=== PATIENT | male | born 1980 ===

== ENCOUNTER 2019-06-08 19:55 | Observation (INO) | payer SELFPAY ==
[2019-06-08 22:13] LABS: #Eosinphils 0.2 thou/uL (0.0-0.7); #Lymphocytes 1.3 thou/uL (1.20-3.40); #Monocytes 0.5 thou/uL (0.11-0.59); #Neutrophils 8.6 thou/uL (1.40-6.50); %Basophils 0.2 % (0.0-1.0); %Eosinophils 1.5 % (0.0-10.0); %Lymphocytes 12.1 % (21.0-51.0); %Monocytes 4.5 % (0.0-10.0); %Neutrophils 81.7 % (42.0-75.0); Hemoglobin 15.3 g/dL (14.0-18.0); Mean Corpuscular HGB CONC 35.5 g/dL (32.0-36.0); Mean Corpuscular Hemoglobin 31.1 pg (27.0-31.0); Mean Corpuscular Volume 87.6 fL (78.0-98.0); Mean Platelet Volume 7.4 fL (7.4-10.4); Platelet Count 212 thou/uL (130-400); RBC Distribution Width 11.6 % (11.5-14.5); White Blood Cell (WBC) Count 10.5 thou/uL (4.8-10.8)
[2019-06-08 22:33] LABS: ALT (SGPT) 87 U/L (8-55); AST (SGOT) 106 U/L (5-34); Albumin 4.3 g/dL (3.5-5.0); Alkaline Phosphatase 74 U/L (40-110); Anion Gap 13 mmol/L (10-20); BUN (Urea Nitrogen) 23 mg/dL (8.9-20.6); Bilirubin, Total 0.6 mg/dL (0.2-1.2); Calc. Creatinine Clearance 0 mL/min (70-130); Carbon Dioxide 24 mmol/L (22-29); Chloride 103 mmol/L (98-107); Estimated GFR-MDRD 80; Globulin 2.6 g/dL (2.4-3.5); Glucose 230 mg/dL (70-105); Potassium 3.7 mmol/L (3.5-5.1); Protein, Total 6.9 g/dL (6.0-8.3); Sodium 136 mmol/L (136-145)
--- NOTE | 2019-06-08 23:17 | ULT ---
Scrotal sonogram with duplex evaluation HISTORY: Testicular pain. FINDINGS: The right testicle measures up to 5.0 cm length and the left 4.8 cm. Each has a normal sono graphic appearance with good color and spectral Doppler flow. Along the lateral margin of the right side of the scrotum, a lobular heterogeneous complex lesion wit h some internal fluid is centered outside of the testicle. IMPRESSION: Normal sonographic appearance of the testicles. No evidence of mass or torsion. Complex fluid collection along the right side of the scrotum. Possibly a hematoma? Correlate with rec ent surgical history.
--- NOTE | 2019-06-09 01:34 | PDOC.FPRHP ---
- History of Present Illness Chief Complaint: R scrotal bleeding and swelling History of Present Illness: Patient is a 38M with no PMHx who presented with post-op complications after a vasectomy 06/08. Patient had a vasectomy at [facility] on 06/08. Per patient, everything went fine after the procedure and he went home. He had been laying down at home, and when he got up to use the restroom he noticed that his pants and boxers were covered in blood and his scrotum was swollen. Patient reports of only a little pain. He states he was able to urinate after the procedure, but has not urinated since he noticed the bleeding, though he has not had much to drink and does not feel the need to urinate. PCP: Fisionrosamaria - Allergies/Adverse Reactions Allergies Allergy/AdvReac Type Severity Reaction Status Date / Time No Known Allergies Allergy Verified 06/09/19 03:14 - History PMHx: None PSHx: Appendectomy FHx: non-contributory Social: drinks 6-pack of beer per week, non-smoker, no drug use - Review of Systems General: denies: fever/chills, weight/appetite/sleep changes Eyes: denies: eye pain, vision changes ENT: denies: nasal congestion, rhinorrhea Respiratory: denies: cough, shortness of breath Cardiovascular: denies: chest pain, edema Gastrointestinal: denies: nausea, vomiting, diarrhea Genitourinary: reports: other (swollen scrotum, bleeding from scrotum) Skin: denies: rashes, lesions Musculoskeletal: denies: tenderness, stiffness Neurological: denies: syncope, seizure Psychological: denies: anxiety, depression - Vital signs BP: [110/70] HR: [72] RR: [16] Tmax: [99.2F] Pox: [95]% on [RA] Wt: [80.467kg ] - Physical Exam Constitutional: NAD, awake, alert and oriented HEENT: EOMI, MMM Neck: supple, FROM Chest: no-tender to palpation, no lesions Heart: RRR, normal S1/S2 Lungs: CTAB, no respiratory distress Abdomen: soft, non-tender Musculoskeletal: normal structure, ROM grossly normal Neurological: no focal deficit, normal sensation Skin: good turgor, no jaundice Heme/Lymphatic: no purpura, other (scrotum is no long bleeding on exam) Psychiatric: normal mood and affect, good judgment and insight Additional comment: scrotum swollen, mildly tender to palpation FMR H&P: Results - Labs Result Diagrams: 06/09/19 05:58 06/09/19 05:58 Lab results: WBC 10.5 thou/uL (4.8-10.8) 06/08/19 22:00 Hgb 15.3 g/dL (14.0-18.0) 06/08/19 22:00 Hct 42.9 % (42.0-52.0) 06/08/19 22:00 MCV 87.6 fL (78.0-98.0) 06/08/19 22:00 Plt Count 212 thou/uL (130-400) 06/08/19 22:00 Neutrophils % 81.7 % (42.0-75.0) H 06/08/19 22:00 Sodium 136 mmol/L (136-145) 06/08/19 22:00 Potassium 3.7 mmol/L (3.5-5.1) 06/08/19 22:00 Chloride 103 mmol/L (98-107) 06/08/19 22:00 Carbon Dioxide 24 mmol/L (22-29) 06/08/19 22:00 BUN 23 mg/dL (8.9-20.6) H 06/08/19 22:00 Creatinine 1.04 mg/dL (0.7-1.3) 06/08/19 22:00 Glucose 230 mg/dL (70-105) H 06/08/19 22:00 Calcium 9.0 mg/dL (7.8-10.44) 06/08/19 22:00 Total Bilirubin 0.6 mg/dL (0.2-1.2) 06/08/19 22:00 AST 106 U/L (5-34) H 06/08/19 22:00 ALT 87 U/L (8-55) H 06/08/19 22:00 Alkaline Phosphatase 74 U/L (40-110) 06/08/19 22:00 Serum Total Protein 6.9 g/dL (6.0-8.3) 06/08/19 22:00 Albumin 4.3 g/dL (3.5-5.0) 06/08/19 22:00 - Radiology Interpretation Other Status: report reviewed by me (Scrotal U/S: normal testicles, no evidence of mass/torsion; complex fluid collection along right side of scrotum, possible hematoma) FMR H&P: A/P - Problem List (1) Elevated transaminase level Current Visit: Yes Status: Acute Code(s): R74.0 - NONSPEC ELEV OF LEVELS OF TRANSAMNS & LACTIC ACID DEHYDRGNSE (2) Elevated glucose Current Visit: Yes Status: Acute Code(s): R73.09 - OTHER ABNORMAL GLUCOSE (3) Scrotal hematoma Current Visit: Yes Status: Acute Code(s): S30.22XA - CONTUSION OF SCROTUM AND TESTES, INITIAL ENCOUNTER (4) Scrotal bleeding Current Visit: Yes Status: Acute Code(s): N50.1 - VASCULAR DISORDERS OF MALE GENITAL ORGANS (5) History of vasectomy Current Visit: Yes Status: Acute Code(s): Z98.52 - VASECTOMY STATUS - Plan Patient is a 38M with no PMHx who presents with post-op complications after vasectomy 06/08 #Hx of vasectomy #Scrotal swelling #Scrotal bleeding -vasectomy 06/08, no complications during the procedure, with bleeding and swelling that occurred after the patient got home -u/s suggestive of scrotal hematoma, no evidence for testicular torsion/swelling -patient reports of only a small amount of pain -H/H stable at 15.3/42.9, will repeat in am to monitor -will get INR/PT in morning #Elevated transaminases -AST 106, ALT 87 -patient reports he drinks 6 pack of beer/week -will get coags in am #Elevated glucose -glucose 230 -no hx of diabetes -BMP and A1C in am DVT ppx: SCDs Dispo: obs to monitor for stability of scrotal swelling, monitor stability of H/ H. Will check coags in am and likely d/c in am if patient is stable Code: Full FMR H&P: Upper Level - Plan Date/Time: 06/09/19 0133 IBola MD, have evaluated this patient and agree with findings/ plan as outlined by wildlife biology internship resident. Pertinent changes/additions are listed here. 38 yo male [place] [facility] [place]. Reports significant bleeding after urinating today. Please see wildlife biology internship note above for further information. 1. Post-op complication bleeding - H&H stable and discontinued bleeding at this time - Scrotal US showed stable hematoma - Will recheck H&H in AM - Will check PT/INR in AM 2. Elevated AST/ALT - Likely secondary to alcohol intake - Recommend outpatient follow up 3. Hyperglycemia - Consider DM diagnosis - Recheck BMP in AM - Recommend outpatient follow up PCP: [facility] CODE STATUS: FULL CODE Disposition: Stable, will admit for observation and likely discharge in AM. Addendum - Attending - Attending Attestation Date/Time: 06/09/19 5079 I personally evaluated the patient and discussed the management with Dr. Peña I agree with the History, Examination, Assessment and Plan documented above with any addition or exceptions noted below. Patient s/p vasectomy with right sided scrotal swelling and hematoma appr 3.5 cm with scrotal bruising . No fever no chills voiding well recommend elevation scrotal support reduced activity ice and observation could be discharged later today if no further bleeding discussed with patient at length.
[2019-06-09] MEDS ORDERED: Ondansetron ODT 4 MG TAB SL PRN (02:25)
[2019-06-09] MEDS ORDERED: Ondansetron PF 4 MG/2 ML Vial IVP PRN (02:25)
[2019-06-09] MEDS ORDERED: Sodium Chloride 0.9% 1,000 ML IV SCH (02:25)
[2019-06-09] MEDS ORDERED: Ondansetron ODT 4 MG TAB PO PRN (02:33)
[2019-06-09] MEDS ORDERED: Acetaminophen 325 MG TAB PO PRN (02:33)
[2019-06-09 02:40] VITALS: BMI 26.9
[2019-06-09 06:20] LABS: Hemoglobin 14.4 g/dL (14.0-18.0); Mean Corpuscular HGB CONC 35.2 g/dL (32.0-36.0); Mean Corpuscular Volume 88.2 fL (78.0-98.0); Mean Platelet Volume 7.4 fL (7.4-10.4); Platelet Count 192 thou/uL (130-400); RBC Distribution Width 11.7 % (11.5-14.5); Red Blood Cell (RBC) Count 4.65 mill/uL (4.70-6.10); White Blood Cell (WBC) Count 5.7 thou/uL (4.8-10.8)
[2019-06-09 06:34] LABS: Anion Gap 11 mmol/L (10-20); BUN (Urea Nitrogen) 22 mg/dL (8.9-20.6); Calc. Creatinine Clearance 158 mL/min (70-130); Calcium 8.7 mg/dL (7.8-10.44); Carbon Dioxide 24 mmol/L (22-29); Chloride 105 mmol/L (98-107); Estimated GFR-MDRD Greater than 90; Glucose 198 mg/dL (70-105); Potassium 3.8 mmol/L (3.5-5.1); Sodium 136 mmol/L (136-145)
[2019-06-09 06:45] LABS: PTT 29.9 SEC (22.9-36.1); Prothrombin Time 13.4 SEC (12.0-14.7)
[2019-06-09 11:11] LABS: Hemoglobin A1c 9.3 % (4.0-6.0)
[2019-06-09 12:10] VITALS: BP 117/68; TEMP 98.6
--- NOTE | 2019-06-11 10:58 | DIS ---
DATE OF ADMISSION: 06/09/2019 DATE OF DISCHARGE: 06/09/2019 RESIDENT: Kelli High MD. ADMITTING ATTENDING: Luis Miguel Wright MD. DISCHARGE ATTENDING: Luis Miguel Wright MD. CONSULTS: None. PROCEDURES: Testicular ultrasound, normal appearance of testicles. No evidence of mass or torsion. Complex fluid collection on the right side of scrotum, possibly a hematoma. PRIMARY DIAGNOSES: 1. Scrotal hematoma in the setting of recent vasectomy. 2. Elevated transaminitis. 3. Hyperglycemia. DISCHARGE MEDICATIONS: Tylenol and ibuprofen as needed. HISTORY OF PRESENT ILLNESS/HOSPITAL COURSE: Mr. Fontenot is a 38-year-old male who recently had a vasectomy procedure in clinic. He reported no symptoms afterwards, but overnight developed swelling and a little bit of an inguinal pain that caused him to present to the emergency department. Here testicular ultrasound was performed showing scrotal hematoma. The patient was not having any symptoms of difficulty with urination or severe pain. H and H were stable throughout hospital course. INR and her PT/INR were normal as well. On routine labs drawn, initial labs it was noted that he had elevated AST 106 and ALT 87. The patient reports he drinks a six pack of beer per week. This can be followed up outpatient. He is also noted to have an elevated glucose of initially 230 and on the morning of 06/09 it was 198. His A1c is 9.3. This resulted after patient had been discharged. Please discuss diagnosis of diabetes with patient. The patient was educated on ways to reduce swelling such as cold compresses and elevation. He will need to follow up Tuesday with Dr. Zhou or another physician who has availability. DISPOSITION: Stable. DISCHARGE INSTRUCTIONS: Location: Home. Diet: Carb consistent. Activity: As tolerated. Followup: Josemanuel Kim Physician in 2 days on Tuesday, June 12. Job ID: [id number] [facility]
== END 2019-06-09 15:05 | disposition home or self-care (01) ==
LOC: ERS 19:55 → SJJU 06-09 02:31
PROVIDERS: ADMIT Internal Medicine; ATTEND Internal Medicine
DX: N99.840 Postprocedural hematoma of a genitourinary system organ or structure following a genitourinary system procedure (principal); N50.1 Vascular disorders of male genital organs; R74.0 Nonspecific elevation of levels of transaminase and lactic acid dehydrogenase [LDH]; R73.9 Hyperglycemia, unspecified
CPT/HCPCS: 36415; 76870; 80048; 80053; 83036; 85025; 85027; 85610; 85730; 93976; G0378